=== PATIENT | female | born 1945 | race Caucasian/White ===

== ENCOUNTER → 2024-09-03 | Outpatient (CLI) | payer MEDICARE, BC, SELFPAY ==
[2024-09-03 13:08] LABS: Misc Send Out* See Sep Rpt
[2024-09-03 13:42] LABS: Basophils % (Auto) 0 % (0-2.5); Eosinophils # (Auto) 0.3 Thou/mm3 (0.0-0.5); Eosinophils % (Auto) 3 % (0-10); Hematocrit 34.7 % (36.0-46.0); Hemoglobin 12.2 g/dL (12.0-16.0); INR 1.1 (0.9-1.3); Immature Granulocytes % (Auto) 0 % (0-0); Immature Granulocytes Auto 0.03 Thou/mm3 (0.00-0.00); Lymphocytes # (Auto) 1.2 Thou/mm3 (1.0-4.8); Lymphocytes % (Auto) 15 % (10-50); Mean Corpuscular HGB Conc 35.2 g/dl (31.0-37.0); Mean Corpuscular Volume 88 fL (80-100); Monocytes # (Auto) 0.7 Thou/mm3 (0.0-0.8); Monocytes % (Auto) 8 % (0-12); Neutrophils % (Auto) 73 % (37-80); Nucleated Red Blood Cell % 0 /100 WBC (0); Partial Thromboplastin Time 27.3 Seconds (22.0-36.0); Platelet Count 368 Thou/mm3 (140-440); Prothrombin Time 12.1 Seconds (9.0-12.2); Red Blood Count 3.93 Miln/mm3 (4.00-5.20); White Blood Count 8.3 Thou/mm3 (3.6-11.0)
[2024-09-03 14:05] LABS: Alanine Aminotransferase 23 U/L (10-49); Albumin, Serum 4.5 gm/dL (3.4-4.8); Albumin/Globulin Ratio 1.7 (1.2-2.2); Alkaline Phosphatase 62 U/L (46-116); Anion Gap 13 (7-16); Aspartate Amino Transferase 29 U/L (0-34); BUN/Creatinine Ratio 14 Ratio (12-20); Bilirubin,Total 0.3 mg/dL (0.3-1.2); Blood Urea Nitrogen 15 mg/dL (9-23); C-Reactive Protein 1.5 mg/dL (0.0-0.9); Calcium 9.2 mg/dL (8.3-10.6); Calcium (Corrected) 9.2 mg/dL (8.5-10.1); Carbon Dioxide 21.3 mMol/L (20.0-31.0); Chloride 111 mMol/L (98-107); Creatinine (Component) 1.1 mg/dL (0.6-1.3); Globulin 2.7 gm/dL (2.3-3.5); Glucose 114 mg/dL (74-106); Osmolality,Calculated 290 (275-295); Potassium 2.9 mMol/L (3.4-5.1); Sodium 145 mMol/L (136-145); Total Protein 7.2 gm/dL (5.7-8.2); eGFR 51 See Note
[2024-09-13 07:10] LABS: Immunoglobulin A 146 mg/dL (70-320); tTG Ab, IgA <1.0 U/mL
== END | disposition home or self-care (01) ==
LOC: COPL 12:37
PROVIDERS: PCP Nurse Practitioner Family; Referring Provider Internal Medicine Gastroenterology; Visit Provider Internal Medicine Gastroenterology
DX: R19.7 Diarrhea, unspecified (principal); R10.9 Unspecified abdominal pain
CPT/HCPCS: 36415; 80053; 82784; 85025; 85610; 85730; 86140; 86364

== ENCOUNTER → 2024-09-09 | Outpatient (CLI) | payer MEDICARE, BC, SELFPAY ==
[2024-09-09 15:17] LABS: Misc Send Out* See Sep Rpt
[2024-09-10 07:59] LABS: Stool for WBCs Negative (Negative)
[2024-09-10 08:53] LABS: Clostridium Difficile PCR Negative (Negative)
[2024-09-10 08:53] LABS: Clostridium Difficile PCR Negative (Negative)
[2024-09-16 06:43] LABS: Calprotectin, Stool* 65 mcg/g
== END | disposition home or self-care (01) ==
LOC: SLDO 15:11
PROVIDERS: Referring Provider Internal Medicine Gastroenterology; Visit Provider Internal Medicine Gastroenterology
DX: R10.9 Unspecified abdominal pain (principal); R19.7 Diarrhea, unspecified
CPT/HCPCS: 83993; 87015; 87045; 87046; 87077; 87177; 87205; 87209; 87493; 87899

== ENCOUNTER → 2024-10-13 | Outpatient (CLI) | payer MEDICARE, BC, SELFPAY ==
--- NOTE | 2024-10-13 09:30 | XR_ITS ---
Examination: CT abdomen, without intravenous contrast. CT pelvis, without intravenous contrast. CT abdomen, with intravenous contrast. CT pelvis, with intravenous contrast. 2-D sagittal coronal reconstructions. Date and time of exam:October 13, 2024 1021 hours Comparison November 16, 2015 INDICATIONS: Diarrhea for months, history colitis CTDI: vol (mGy) 13.9 DLP: (mGycm) 651 Technique: Multiple 3.0 axial images of the abdomen and pelvis without intravenous contrast, 3.0 mm slice thickness. Multiple 3.0 postcontrast images abdomen and pelvis also obtained, post intravenous injection 60 cc [id number] 2-D sagittal and coronal reconstructions. Low dose protocols were performed. One or more of the following dose reduction techniques were used; automated exposure control, adjustment of the mA and/or KV according to patient size, use of iterative reconstruction technique. Findings: 3 mm pulmonary nodule right middle lobe image 26 No pneumonia or pulmonary edema No visualized liver or splenic lesions No gallstones No pancreatic or adrenal mass Moderate renal parenchymal scar formation 1 mm nonobstructing left renal calculus Abdominal aortic calcification no aneurysmal dilatation No pericecal inflammatory change Mild colonic ileus No diverticulitis Prominent osteopenia Transpedicular lumbar fusion L4-S1 with satisfactory alignment IMPRESSION: 3 mm pulmonary nodule right middle lobe, recommend PA lateral chest follow-up Moderate bilateral renal parenchyma scar formation. 1 mm nonobstructing left renal calculus. Mild colonic ileus No bowel obstruction
== END | disposition home or self-care (01) ==
PROVIDERS: PCP Nurse Practitioner Family; Referring Provider Internal Medicine Gastroenterology; Visit Provider Internal Medicine Gastroenterology
DX: R91.1 Solitary pulmonary nodule (principal); N28.89 Other specified disorders of kidney and ureter; N20.0 Calculus of kidney; K56.7 Ileus, unspecified
CPT/HCPCS: 74178; A4649; Q9967

== ENCOUNTER → 2024-10-29 | Outpatient (CLI) | payer MEDICARE, BC, SELFPAY ==
--- NOTE | 2024-10-29 | XR_ITS ---
Examination: PA lateral chest 2 views TECHNIQUE: Upright PA lateral chest 2 views Date and time: October 29, 2024 1118 hours Comparison February 01, 2020 INDICATIONS: 3 mm pulmonary nodule right middle lobe on CT abdomen pelvis October 13, 2024 FINDINGS: Spinal stimulator Normal heart size Lungs are clear Reversal shoulder arthroplasty IMPRESSION: No pneumonia or pulmonary nodules Consider CT chest without intravenous contrast follow-up
== END | disposition home or self-care (01) ==
LOC: CDIM 10:58
PROVIDERS: PCP Nurse Practitioner Family; Referring Provider Nurse Practitioner Family; Visit Provider Nurse Practitioner Family
DX: R91.1 Solitary pulmonary nodule (principal)
CPT/HCPCS: 71046

== ENCOUNTER → 2024-11-08 | Outpatient (CLI) | payer MEDICARE, BC, SELFPAY ==
--- NOTE | 2024-11-08 10:59 | XR_ITS ---
Examination: CT chest, without intravenous contrast. Sagittal and coronal 2-D reconstructions. Exam date and time: October 31, 2024 1137 hours INDICATIONS: 3 mm pulmonary nodule right middle lobe on CT abdomen pelvis study October 13, 2024 CTDI:vol (mGy) 7.41 DLP: (mGycm) 264 Technique: Multiple 3.0 mm axial sections of the chest to been obtained. Bone and lung density settings are obtained. Sagittal and coronal 2-D reconstructions have been obtained. Low dose protocols were performed. One or more of the following dose reduction techniques were used; automated exposure control, adjustment of the mA and/or KV according to patient size, use of iterative reconstruction technique. Findings: Partially collapsed right breast implant No thoracic aortic aneurysm dilatation. Pulmonary artery segments are not enlarged. Moderate calcification left anterior descending coronary artery. No paratracheal tracheobronchial or bronchopulmonary adenopathy. 3 mm pulmonary nodule right upper lobe image 227 3 mm calcified granuloma left lung No pneumonia or pulmonary edema No visualized liver or splenic lesion No gallstones 2 mm nonobstructing left renal calculus Prominent osteopenia with chronic osteoporotic compressions T11-T12 IMPRESSION: Noncalcified pulmonary nodules as above, with this study as baseline recommend 6 month follow-up CT chest without contrast
== END | disposition home or self-care (01) ==
PROVIDERS: PCP Nurse Practitioner Family; Referring Provider Nurse Practitioner Family; Visit Provider Nurse Practitioner Family
DX: R91.8 Other nonspecific abnormal finding of lung field (principal)
CPT/HCPCS: 71250